=== PATIENT | female | born 1985 | race Two or more races ===

== ENCOUNTER 2021-12-12 05:52 | Day surgery (SDC) | payer OTHER | END 2021-12-12 11:50 | disposition home or self-care (01) | LOC: CIR.AMB 05:52 | PROVIDERS: ATTEND Orthopaedic Surgery Hand Surgery | DX: M67.431 Ganglion, right wrist (principal); Z20.822 Contact with and (suspected) exposure to COVID-19; Z88.8 Allergy status to other drugs, medicaments and biological substances; I34.1 Nonrheumatic mitral (valve) prolapse; G43.909 Migraine, unspecified, not intractable, without status migrainosus ==